=== PATIENT | female | born 2000 | race Caucasian/White ===

== ENCOUNTER 2018-05-19 12:13 | Day surgery (SDC) | payer OTHER ==
[2018-05-19] MEDS ORDERED: CEFAZOLIN 1 GM/50 ML (PMX) 50 ML IVPB (13:00)
[2018-05-19] MEDS ORDERED: SOD CHLORIDE 0.9% 1,000 ML IV (13:00)
[2018-05-19] MEDS ORDERED: NEOSTIGMINE 3 MG/3 ML SYRINGE (15:22)
[2018-05-19] MEDS ORDERED: GLYCOPYRROLATE 0.4 MG INJ (15:22)
[2018-05-19] MEDS ORDERED: ROCURONIUM 50 MG INJ (15:22)
[2018-05-19] MEDS ORDERED: PROPOFOL 20 ML (15:22)
[2018-05-19] MEDS ORDERED: CEFAZOLIN 1 GM INJ (15:22)
[2018-05-19] MEDS ORDERED: DEXAMETHASONE 4 MG/ML 1 ML INJ (15:23)
[2018-05-19] MEDS ORDERED: ONDANSETRON 4 MG INJ (15:23)
[2018-05-19] MEDS ORDERED: IPRATROPIUM (NEB) 0.5 MG/2.5 ML AMP HHN (15:30)
[2018-05-19] MEDS ORDERED: LABETALOL HCL 20MG INJ IV (15:30)
[2018-05-19] MEDS ORDERED: EPHEDrine SULFATE 50 MG/5 ML SYG IV (15:30)
[2018-05-19] MEDS ORDERED: MIDAZOLAM 1 MG/ML 2 ML INJ IV (15:30)
[2018-05-19] MEDS ORDERED: OXYCODONE/ACETAMINOPHEN (5/325) TAB PO ×2 (15:30)
[2018-05-19] MEDS ORDERED: HYDROmorphONE 1 MG/5 ML IV SYRINGE IV (15:30)
[2018-05-19] MEDS ORDERED: ONDANSETRON 4 MG INJ IV (15:30)
[2018-05-19] MEDS ORDERED: hydrALAzine 20 MG INJ IV (15:30)
[2018-05-19] MEDS ORDERED: ALBUTEROL 0.083% (NEB) 2.5 MG/3 ML AMP HHN (15:30)
[2018-05-19] MEDS ORDERED: DIPHENHYDRAMINE 50 MG INJ IV (15:30)
[2018-05-19] MEDS ORDERED: MEPERIDINE 25 MG INJ IV (15:30)
[2018-05-19] MEDS ORDERED: FENTAnyl 50 MCG/ML VIAL IV ×3 (15:30)
[2018-05-19] MEDS ORDERED: TRIMETHOBENZAMIDE 100 MG/ML VIAL IM (15:30)
[2018-05-19] MEDS ORDERED: ROPIVACAINE 0.5 % 30 ML VIAL (16:01)
[2018-05-19] MEDS ORDERED: FENTAnyl 50 MCG/ML VIAL (16:21)
[2018-05-19] MEDS: HYDROmorphONE 1 MG/5 ML IV SYRINGE IV ×3 (17:26→17:44)
[2018-05-19] MEDS: HYDROCODONE/APAP (5/325) TAB PO (17:35)
== END 2018-05-19 18:40 | disposition home or self-care (01) ==
LOC: SDS 12:13
DX: K81.1 Chronic cholecystitis (principal)
CPT/HCPCS: 47562; 84703; 88304